=== PATIENT | male | born 1980 | race Caucasian/White ===

== ENCOUNTER 2017-09-14 16:36 | Inpatient (IN) | payer MEDICARE, MEDICAID ==
[~2017-09-14] VITALS: Ht 172.7 cm; Wt 70.1 kg
[2017-09-14] MEDS ORDERED: ARIP10TA8 PO (17:41)
[2017-09-14] MEDS ORDERED: ESCI20TA PO (17:41)
[2017-09-14] MEDS ORDERED: LORazepam 2 MG TABLET PO PRN (17:45)
[2017-09-14] MEDS ORDERED: ZOLPIDEM TARTRATE 10 MG TABLET PO PRN (17:45)
[2017-09-14 20:18] VITALS: BP 116/68
[2017-09-15 06:53] LABS: BASOPHILS % (AUTO) 1.1 % (0.0-2.0); EOSINOPHILS % (AUTO) 3.5 % (1.0-6.0); HEMOGLOBIN 14.9 g/dL (13.5-17.5); LYMPHOCYTES # (AUTO) 2.7 K/uL (1.0-4.8); LYMPHOCYTES % (AUTO) 35.5 % (22.0-44.0); MEAN CORPUSCULAR HEMOGLOBIN 30.3 pg (26.0-34.0); MEAN CORPUSCULAR HGB CONC 34.6 G/dL (31.0-37.0); MEAN CORPUSCULAR VOLUME 88 fL (80-100); MONOCYTES # (AUTO) 0.8 K/uL (0.1-1.0); MONOCYTES % (AUTO) 10.4 % (2.0-9.0); NEUTROPHILS # (AUTO) 3.7 K/uL (1.8-7.7); NEUTROPHILS % (AUTO) 49.5 % (40.0-70.0); PLATELET COUNT (AUTO) 278 K/uL (150-450); RED BLOOD CELL COUNT(AUTO) 4.91 MIL/uL (4.50-5.90); RED CELL DISTRIBUTION WIDTH 14.3 % (11.5-14.5)
[2017-09-15 07:18] LABS: HEMOGLOBIN A1C 5.1 % (4.5-6.2)
[2017-09-15 07:23] LABS: ALANINE AMINOTRANSFERASE 25 U/L (12-78); ALBUMIN 3.8 g/dL (3.4-5.0); ALKALINE PHOSPHATASE 75 U/L (46-116); ANION GAP 6 mmol/L (8-16); ASPARTATE AMINOTRANSFERASE 18 U/L (15-37); BILIRUBIN,TOTAL 0.3 mg/dL (0.1-1.0); CALCIUM, TOTAL 8.8 mg/dL (8.8-10.5); CARBON DIOXIDE 29 mmol/L (22-29); CHLORIDE 101 mmol/L (98-107); CHOL/HDL RATIO 3.1 (4.2-7.3); CHOLESTEROL 134 mg/dL (131-200); CREATININE 0.92 mg/dL (0.60-1.30); GLOMERULAR FILTR. RATE CALC > 60 mL/min (>60); GLUCOSE,RANDOM 86 mg/dL (70-110); HDL CHOLESTEROL 43 mg/dL (40-60); LDL CHOL (CALC.) 71 mg/dL (0-130); POTASSIUM 5.1 mmol/L (3.5-5.1); SODIUM SERUM 136 mmol/L (136-145); TOTAL PROTEIN, SERUM 7.4 g/dL (6.4-8.2); TRIGLYCERIDES 101 mg/dL (15-150); UREA NITROGEN, BLOOD 16 mg/dL (7-18)
[2017-09-15 07:51] LABS: FREE T4 (FREE THYROXINE) 0.92 ng/dL (0.76-1.46); THYROID STIMULATING HORMONE 3.85 uIU/mL (0.36-3.74)
[2017-09-15] MEDS: NICOTINE 21 MG/24 HOUR PATCH TD SCH (08:08)
[2017-09-15 08:18] VITALS: BP 115/71
[2017-09-15] MEDS: ARIPiprazole 10 MG TABLET PO SCH (11:30)
[2017-09-15] MEDS: ESCITALOPRAM OXALATE 20 MG TABLET PO SCH (11:30)
[2017-09-15] MEDS: SPIRONOLACTONE 25 MG TABLET PO SCH (16:20)
[2017-09-15] MEDS: ESTRADIOL 1 MG TABLET PO SCH (16:20)
[2017-09-15 16:30] VITALS: BP 101/53
[2017-09-16] MEDS: ARIPiprazole 10 MG TABLET PO SCH (08:32)
[2017-09-16] MEDS: ESCITALOPRAM OXALATE 20 MG TABLET PO SCH (08:33)
[2017-09-16] MEDS: NICOTINE 21 MG/24 HOUR PATCH TD SCH (08:33)
[2017-09-16] MEDS: CHOLECALCIFEROL (VIT D3) 1,000 UNITS TABLET PO SCH (09:00)
[2017-09-16] MEDS: SPIRONOLACTONE 25 MG TABLET PO SCH ×2 (09:20→17:54)
[2017-09-16] MEDS: ESTRADIOL 1 MG TABLET PO SCH ×2 (09:20→17:54)
[2017-09-16 16:29] VITALS: BP 120/67
[2017-09-17] MEDS: NICOTINE 21 MG/24 HOUR PATCH TD SCH (09:37)
[2017-09-17] MEDS: ARIPiprazole 10 MG TABLET PO SCH (13:43)
[2017-09-17] MEDS: ESTRADIOL 1 MG TABLET PO SCH ×2 (13:44→15:56)
[2017-09-17] MEDS: SPIRONOLACTONE 25 MG TABLET PO SCH ×2 (13:44→15:57)
[2017-09-17] MEDS: CHOLECALCIFEROL (VIT D3) 1,000 UNITS TABLET PO SCH (13:44)
[2017-09-17] MEDS: ESCITALOPRAM OXALATE 20 MG TABLET PO SCH (13:44)
[2017-09-18] MEDS: CHOLECALCIFEROL (VIT D3) 1,000 UNITS TABLET PO SCH (08:26)
[2017-09-18] MEDS: ESTRADIOL 1 MG TABLET PO SCH ×2 (08:26→16:15)
[2017-09-18] MEDS: SPIRONOLACTONE 25 MG TABLET PO SCH ×2 (08:26→16:15)
[2017-09-18] MEDS: ESCITALOPRAM OXALATE 20 MG TABLET PO SCH (08:38)
[2017-09-18] MEDS: ARIPiprazole 10 MG TABLET PO SCH (08:39)
[2017-09-18] MEDS: NICOTINE 21 MG/24 HOUR PATCH TD SCH (08:40)
[2017-09-18 09:14] VITALS: BP 131/64
[2017-09-18 16:23] VITALS: BP 105/57
[2017-09-19 03:42] VITALS: BP 119/87
[2017-09-19] MEDS: ESTRADIOL 1 MG TABLET PO SCH ×2 (08:27→16:19)
[2017-09-19] MEDS: ARIPiprazole 10 MG TABLET PO SCH (08:27)
[2017-09-19] MEDS: SPIRONOLACTONE 25 MG TABLET PO SCH ×2 (08:27→16:19)
[2017-09-19 08:28] VITALS: BP 113/61
[2017-09-19] MEDS: ESCITALOPRAM OXALATE 20 MG TABLET PO SCH (08:28)
[2017-09-19] MEDS: CHOLECALCIFEROL (VIT D3) 1,000 UNITS TABLET PO SCH (08:28)
[2017-09-19] MEDS: NICOTINE 21 MG/24 HOUR PATCH TD SCH ×2 (08:28→17:00)
[2017-09-19] MEDS ORDERED: ESCI20TA36 PO (11:51)
[2017-09-19] MEDS ORDERED: ARIP10TA8 PO (11:51)
[2017-09-19] MEDS ORDERED: SPIR25 PO (13:19)
[2017-09-19] MEDS ORDERED: VITAD1000 PO (13:19)
[2017-09-19] MEDS ORDERED: ESTR-95 PO (13:19)
[2017-09-19 16:11] VITALS: BP 121/76
[2017-09-20 07:12] LABS: CREATINE KINASE, TOTAL 37 U/L (39-308); FREE T4 (FREE THYROXINE) 0.81 ng/dL (0.76-1.46); THYROID STIMULATING HORMONE 4.47 uIU/mL (0.36-3.74)
== END 2017-09-20 08:00 | disposition home or self-care (01) | DRG 885 ==
LOC: 3EX 19:40
DX: F31.4 Bipolar disorder, current episode depressed, severe, without psychotic features (principal); R45.851 Suicidal ideations; Z59.0 Homelessness; F64.9 Gender identity disorder, unspecified; F41.9 Anxiety disorder, unspecified; F15.90 Other stimulant use, unspecified, uncomplicated; E55.9 Vitamin D deficiency, unspecified; E03.9 Hypothyroidism, unspecified; Z79.899 Other long term (current) drug therapy; Z89.421 Acquired absence of other right toe(s)
CPT/HCPCS: 83036; 84439; 84443